=== PATIENT | female | born 1960 | race Caucasian/White ===

== ENCOUNTER → 2025-02-23 | Outpatient (CLI) | payer MEDICARE ==
[2025-02-23 16:27] LABS: African American GFR (CKD) >90 (>60 ml/min/1.73 sqM); Blood Urea Nitrogen 19 mg/dL (7-17); Non-African American GFR(CKD) >90 (>60 ml/min/1.73 sqM)
--- NOTE | 2025-02-23 19:17 | CT ---
EXAMINATION TYPE: CT abdomen pelvis w con CT DLP: 923.6 mGycm, Automated exposure control for dose reduction was used. DATE OF EXAM: 02/23/2025 6:04 PM COMPARISON: None CLINICAL INDICATION:Female, 64 years old with history of K92.1 MELENA; Passed blood clots during bin l movement but it was not in their stool. TECHNIQUE: Standard CT of the abdomen and pelvis following the administration of 100 cc of Isovue 3 00 IV contrast material and oral contrast. Coronal and sagittal reformats were performed. FINDINGS: LOWER CHEST: Unremarkable ABDOMEN LIVER: Peripheral right hepatic lobe 2.4 cm cyst. Additional subcentimeter hypodense focus within the left hepatic lobe which is too small to accurately characterize but likely represents a cyst. GALLBLADDER AND BILE DUCTS: Unremarkable. PANCREAS: Unremarkable. SPLEEN: Few calcified granulomas. ADRENAL GLANDS: Unremarkable. KIDNEYS AND URETERS: No evidence of hydronephrosis. The kidneys enhance symmetrically. No right renal calculus. Nonobstructive left renal 1.1 cm calculus. Contrast is demonstrated within both collecting systems and proximal ureters on the delayed phase. PELVIS BLADDER: Unremarkable REPRODUCTIVE: The uterus is surgically absent. ABDOMEN & PELVIS STOMACH AND BOWEL: Small hiatal hernia, duodenum is unremarkable. Distal colonic diverticulosis witho ut evidence for acute diverticulitis. Enteric contrast reaches the ascending colon. No focal bowel wa ll thickening or surrounding inflammatory changes. No evidence of bowel obstruction. PERITONEUM: No evidence of pneumoperitoneum or free fluid. VASCULATURE: Mild to moderate atherosclerotic calcifications are present throughout the abdominal aor ta and its branches. No evidence of aortic aneurysm. MUSCULOSKELETAL: No acute osseous abnormalities. Degenerative disc disease changes at L5-S1. LYMPH NODES: No evidence for lymphadenopathy. SOFT TISSUE/ABDOMINAL WALL: Unremarkable IMPRESSION: 1. No acute abdominal/pelvic process. 2. Colonic diverticulosis without evidence for acute diverticulitis. 3. Nonobstructive left renal calculus. [facility], , 02/23/2025 7:15 PM
== END | disposition home or self-care (01) ==
LOC: RADCTMAIN 15:25
PROVIDERS: ATTEND Emergency Medicine
DX: N20.0 Calculus of kidney (principal); K57.30 Diverticulosis of large intestine without perforation or abscess without bleeding; K92.1 Melena
CPT/HCPCS: 74177; 82565; 84520